=== PATIENT | male | born 1950 | race Hispanic/Latino ===

== ENCOUNTER 2022-03-09 20:56 | Emergency (ER) | payer OTHER ==
[~2022-03-09] VITALS: Ht 167.6 cm; Wt 99.3 kg
[2022-03-09 21:32] LABS: APPEARANCE,URINE CLEAR (CLEAR); BASOPHILS % (AUTO) 0.2 % (0.0-5.0); BILIRUBIN,URINE NEGATIVE (NEGATIVE); COLOR,URINE YELLOW (YELLOW); EOSINOPHILS % (AUTO) 0.1 % (0.0-8.0); GLUCOSE, URINE (UA) >=1000 mg/dL (NEGATIVE); HEMATOCRIT 33.2 % (42-54); KETONES,URINE NEGATIVE (NEGATIVE); LEUKOCYTE ESTERASE ,URINE TRACE (NEGATIVE); LYMPHOCYTES % (AUTO) 5.5 % (21.0-51.0); MEAN CORPUSCULAR VOLUME 88.1 fL (79-99); NEUTROPHILS % (AUTO) 87.2 % (40.0-77.0); NITRATE,URINE NEGATIVE (NEGATIVE); OCCULT BLOOD,URINE LARGE (NEGATIVE); PLATELET COUNT (AUTO) 257 K/uL (130-400); PROTEIN,URINE 30 mg/dL (NEGATIVE); RED BLOOD CELL COUNT(AUTO) 3.77 MIL/uL (4.50-6.20); RED CELL DISTRIBUTION WIDTH 14.5 % (11.0-15.5)
[2022-03-09 21:48] LABS: CREATININE 2.4 mg/dL (0.5-1.5); POTASSIUM 4.5 mmol/L (3.5-5.1)
[2022-03-09 21:53] LABS: ALBUMIN 2.1 g/dL (3.5-5.0); BILIRUBIN,TOTAL 0.8 mg/dL (0.2-1.0); TOTAL PROTEIN, SERUM 7.8 g/dL (6.0-8.3)
[2022-03-09 21:58] LABS: BACTERIA,URINE Many /HPF (None Seen); MUCUS,URINE Few LPF (None Seen); SQUAMOUS EPITHELIAL CELL,UR Few /HPF (0-2)
[2022-03-09] MEDS ORDERED: ACETAMINOPHEN 500 MG TABLET PO ONE (23:00)
[2022-03-09] MEDS ORDERED: CEFTRIAXONE 1G VIAL IVP ONE (23:00)
[2022-03-09] MEDS ORDERED: 0.9%NACL 1000ML 1,000 ML IV ONE (23:00)
[2022-03-09] MEDS ORDERED: CEPH500B PO (23:34)
[2022-03-09] MEDS ORDERED: ACET-66 PO (23:34)
[2022-03-10 00:09] VITALS: BP 118/51
[2022-03-16] MEDS ORDERED: METF-446 PO (00:19)
[2022-03-16] MEDS ORDERED: ERGO500093 PO (00:19)
[2022-03-16] MEDS ORDERED: SIMV-46 PO (00:19)
[2022-03-16] MEDS ORDERED: OMEP40CA21 PO (00:19)
[2022-03-16] MEDS ORDERED: EMPA25TA PO (00:19)
[2022-03-16] MEDS ORDERED: LISI40TA9 PO (00:19)
[2022-03-16] MEDS ORDERED: GLIP10TA9 PO (00:19)
[2022-03-16] MEDS ORDERED: MELO-108 PO (00:19)
== END 2022-03-10 00:25 | disposition home or self-care (01) ==
LOC: EDH 20:56
DX: N39.0 Urinary tract infection, site not specified (principal); N17.9 Acute kidney failure, unspecified; E86.0 Dehydration; Z20.822 Contact with and (suspected) exposure to COVID-19; E11.9 Type 2 diabetes mellitus without complications; I10 Essential (primary) hypertension
CPT/HCPCS: 36415; 74176; 80053; 81001; 85025; 87088; 87635; 87804 ×2; 96374; 99284; C9803; J0696; J7030

== ENCOUNTER 2022-11-18 09:44 | Emergency (ER) | payer OTHER ==
[~2022-11-18] VITALS: Ht 170.2 cm; Wt 99.8 kg
[~2022-11-18 09:44] MED LIST: ACET325T51 PO; EMPA25TA PO; FAMO20TA8 PO; FINA5TAB41 PO; GLIP10TA9 PO; ONDA-104 PO; SIMV40TA59 PO; TAMS-1 PO; VITAD50000 PO
[2022-11-18] MEDS: KETOROLAC 30MG VIAL (30MG/ML) IM ONE (11:45)
[2022-11-18 12:26] VITALS: BP 146/71
[2022-11-18] MEDS ORDERED: ACET-2079 PO (13:06)
== END 2022-11-18 13:29 | disposition home or self-care (01) ==
LOC: EDH 09:44
DX: S52.502A Unspecified fracture of the lower end of left radius, initial encounter for closed fracture (principal); S20.212A Contusion of left front wall of thorax, initial encounter; E11.9 Type 2 diabetes mellitus without complications; E78.00 Pure hypercholesterolemia, unspecified; I10 Essential (primary) hypertension; Z79.1 Long term (current) use of non-steroidal anti-inflammatories (NSAID); Z79.84 Long term (current) use of oral hypoglycemic drugs; Z79.899 Other long term (current) drug therapy; V84.4XXA Person injured while boarding or alighting from special agricultural vehicle, initial encounter; Y93.39 Activity, other involving climbing, rappelling and jumping off; Y92.89 Other specified places as the place of occurrence of the external cause; Y99.8 Other external cause status
CPT/HCPCS: 99284; 73100; 73120; 71100; 96372; 29125; 93005; J1885

== ENCOUNTER 2024-05-10 10:01 | Emergency (ER) | payer OTHER ==
[~2024-05-10] VITALS: Ht 175.3 cm; Wt 102.1 kg
[~2024-05-10 10:01] MED LIST changes: +ACET-2079 PO
[2024-05-10 10:21] VITALS: BP 134/52; PULSE 68; RESP 16; O2SAT 99
[2024-05-10] MEDS: ACETAMINOPHEN 500 MG TABLET PO ONE (10:24)
[2024-05-10] MEDS ORDERED: BUTA-271 PO (10:52)
== END 2024-05-10 11:35 | disposition home or self-care (01) ==
LOC: EDH 10:01
DX: G44.229 Chronic tension-type headache, not intractable (principal); I10 Essential (primary) hypertension; E11.9 Type 2 diabetes mellitus without complications; E78.00 Pure hypercholesterolemia, unspecified; Z79.899 Other long term (current) drug therapy; Z98.890 Other specified postprocedural states
CPT/HCPCS: 70450